=== PATIENT | female | born 1960 | race Two or more races ===

== ENCOUNTER 2019-12-12 11:43 | Outpatient (CLI) | payer OTHER ==
[~2019-12-12 11:43] MED LIST: AVAPRO150 MG PO; CALTRATE 600 W-1 TAB PO; FOLIC ACID1 MG PO; MACROBID 100 M100 MG PO; OMEGA 3 FISH OI1 CAP PO; OSTERA TABLET1 EACH PO; PLAQUINIL PO; SINGULAIR10 MG PO; TYLENOL-CODEINE1 TAB PO
== END 2019-12-12 11:49 | disposition home or self-care (01) ==
LOC: LAB 11:43
PROVIDERS: ATTEND Internal Medicine Rheumatology
DX: M32.19 Other organ or system involvement in systemic lupus erythematosus (principal)

== ENCOUNTER 2019-12-19 08:26 | Outpatient (CLI) | payer OTHER | END 2019-12-19 08:43 | disposition home or self-care (01) | LOC: RAD 08:26 → MAMO-SONO 10:45 | PROVIDERS: ATTEND Internal Medicine Rheumatology | DX: C22.0 Liver cell carcinoma (principal); N60.01 Solitary cyst of right breast; N60.02 Solitary cyst of left breast; Z12.31 Encounter for screening mammogram for malignant neoplasm of breast ==

== ENCOUNTER 2019-12-21 09:30 | Outpatient (CLI) | payer OTHER | END 2019-12-21 09:39 | disposition home or self-care (01) | LOC: TOM 09:30 | PROVIDERS: ATTEND Internal Medicine Rheumatology | DX: C22.0 Liver cell carcinoma (principal) | CPT/HCPCS: 74160; Q9965 ==